=== PATIENT | male | born 1945 | race Hispanic/Latino ===

== ENCOUNTER 2017-04-01 08:48 | Outpatient (CLI) | payer MEDICARE ==
--- NOTE | 2017-04-01 09:54 | CT ---
LOW DOSE NONCOTNRAST CT THORAX: DATE: 04/01/17. HISTORY: Screening evaluation for malignant neoplasm of lungs. Long history of smoking 1 pack per day. COMPARISON: None available. FINDINGS: There are mild emphysematous changes within the lungs predominantly within the upper lobes. There is a spiculated pulmonary nodule seen at the medial aspect of the right upper lobe adjacent to the major fissure. No additional discrete pulmonary nodule or mass is seen. There is minimal linear atelectasis scarring in the right middle lobe. No pleural effusion is seen. Lack of intravenous contrast limits evaluation of the mediastinal structures and vasculature, but no enlarged lymph nodes are seen by CT size criteria. Mild atherosclerotic vascular calcifications are seen in the coronary arteries and involving the thor acic aorta. A 2.4 cm exophytic hypodense lesion is seen at the superior pole left kidney. This cannot be further characterized on this low-dose noncontrast CT scan examination. Mild degenerative changes are seen in the spine. IMPRESSION: 1. Lung RADS category 4B-suspicious pulmonary nodule measuring 9 mm in the medial aspect of the righ t upper lobe. PET/CT scan examination is recommended for further evaluation. 2. Category S, exophytic hypodense left renal lesion which cannot be further characterized on this l ow-dose CT exam. Renal sonogram is recommended for further evaluation. CODE T POS: [facility]
== END 2017-04-01 08:49 | disposition home or self-care (01) ==
LOC: CT 08:48
DX: F17.210 Nicotine dependence, cigarettes, uncomplicated (principal); N28.89 Other specified disorders of kidney and ureter
CPT/HCPCS: G0297

== ENCOUNTER 2017-05-02 08:22 | Outpatient (CLI) | payer MEDICARE ==
--- NOTE | 2017-05-02 12:48 | CT ---
CT OF CHEST PERFORMED WITH INTRAVENOUS CONTRAST ENHANCEMENT: History: Follow up of pulmonary nodule noted on low dose lung scan. Comparison: 04-01-17 CT pulmonary low dose lung scan. FINDINGS: There are some emphysematous lung changes present. An approximately 12 x 13 mm spiculated nodular den sity seen within the right lung although it is somewhat difficult to see the major fissure in this ar ea. I believe that this is more in the posterior segment of the right upper lobe. Its spiculated appe arance is worrisome even given its small size. No additional nodules are identified. No significant mediastinal or hilar adenopathy. Within the liver parenchyma there is a tiny subcentimeter hypodensity in the dome of the liver, diffi cult to characterize on this examination. It would probably warrant follow up although the possibilit y of a metastatic lesion given the small size of the lung nodule would be very unlikely. Right and le ft adrenal glands are normal in appearance. Hypodensity involving the left kidney appears to represen t a cyst. There is also some cortical scarring seen within the left kidney, partially visualized on t his exam. IMPRESSION: 1. 12 x 13 mm spiculated posterior segment right upper lobe nodule which is suspicious for malignancy . PET scan would be recommended for further assessment. 2. Subtle subcentimeter hypodensity within the dome of the liver, incompletely characterized on this exam. CT using liver mass protocol may be helpful in further assessment. It may be that this density will need to be followed up. POS: [facility]
[2017-05-02] MEDS ORDERED: Iopamidol 370 76% 100 ML VIAL ONE (13:25)
== END 2017-05-02 08:23 | disposition home or self-care (01) ==
LOC: RAD-BREN 08:22
DX: R91.8 Other nonspecific abnormal finding of lung field (principal); F17.210 Nicotine dependence, cigarettes, uncomplicated; R91.1 Solitary pulmonary nodule; K76.89 Other specified diseases of liver
CPT/HCPCS: 71260

== ENCOUNTER 2017-05-30 09:46 | Outpatient (CLI) | payer MEDICARE ==
--- NOTE | 2017-05-30 14:05 | PET ---
PET CT: HISTORY: 72-year-old male with right lung solitary pulmonary nodule. TECHNIQUE: PET Scanning with CT attenuation correction performed from the base of the brain through the proximal thighs following the intravenous administration of 13 mCi [id number] in the right antecubital fossa. Im aging was performed after an uptake interval of 50 minutes. COMPARISON: None. CORRELATION: CT chest dated 05/02/17. FINDINGS: No abnormal FDG localization is noted in the 12.0 x 13.0 mm spiculated posterior segment right upper lobe nodule. No miesha hypermetabolism is seen in the neck, chest, axilla, abdomen, or pelvis. No hypermetabolic pu lmonary nodules, liver, adrenal, or skeletal lesions are identified. There is physiologic activity in the GI and tracts. The CT scan used for attenuation correction demonstrates no evidence of pleural effusions or ascites. There are cysts in the left kidney. IMPRESSION: 1. No evidence of malignancy or metastatic disease by PET criteria. 2. Since the nodule on the CT scan is spiculated, this should be considered malignant until proven o therwise. POS: [facility]
== END 2017-05-30 09:47 | disposition home or self-care (01) ==
LOC: PET 09:46
PROVIDERS: ATTEND Internal Medicine Pulmonary Disease
DX: R91.1 Solitary pulmonary nodule (principal)
CPT/HCPCS: 78815; A9552

== ENCOUNTER 2017-10-21 09:30 | Outpatient (CLI) | payer MEDICARE ==
--- NOTE | 2017-10-21 12:25 | CT ---
CT CHEST WITHOUT CONTRAST: HISTORY: R91.1 (pulmonary nodule). COMPARISON: PET CT from 05/30/2017. Chest CT from 05/02/2017. FINDINGS: Moderate centrilobular emphysematous changes. Using the same point of reference, the right upper lob e pulmonary nodule has not increased in size. This nodule is within the posterior segment of the rig ht upper lobe, abutting the major fissure. There is some retraction in the major fissures and adjace nt spiculation. There is no other suspicious pulmonary nodule. No mediastinal adenopathy. No effusion. The previously described hepatic hypodensity is not well seen on today's exam. The thyroid is unremarkable. Aortic contour is nonaneurysmal. Moderate coronary artery calcificatio ns. There is an incompletely evaluated hypodensity adjacent to the interpolar left kidney. No suspicious lytic or blastic lesion of the skeleton. IMPRESSION: 1. Unchanged appearance of the posterior segment, right upper lobe, pulmonary nodule, abutting the m ajor fissure. Follow-up CT in six months recommended. 2. Incompletely evaluated hypodensity adjacent to the interpolar left kidney. Ultrasound may be bene ficial. POS: [facility]
== END 2017-10-21 09:31 | disposition home or self-care (01) ==
LOC: CT 09:30
PROVIDERS: ATTEND Internal Medicine Pulmonary Disease
DX: R91.1 Solitary pulmonary nodule (principal); R93.8 Abnormal findings on diagnostic imaging of other specified body structures
CPT/HCPCS: 71250